=== PATIENT | male | born 1950 | race Caucasian/White ===

== ENCOUNTER 2018-10-13 18:55 | Emergency (ER) | payer OTHER ==
[~2018-10-13] VITALS: Ht 170.2 cm; Wt 90.7 kg
[2018-10-13] MEDS ORDERED: PREVACID30 MG (19:16)
[2018-10-13] MEDS ORDERED: ENALAPRIL MALEA20 MG (19:16)
[2018-10-13] MEDS ORDERED: SINGULAIR 10MG10 MG (19:18)
== END 2018-10-14 02:46 | disposition home or self-care (01) ==
LOC: ER 18:55
DX: I16.0 Hypertensive urgency (principal); I10 Essential (primary) hypertension

== ENCOUNTER 2022-09-14 15:09 | Emergency (ER) | payer OTHER ==
[~2022-09-14] VITALS: Ht 172.7 cm; Wt 72.6 kg
[~2022-09-14 15:09] MED LIST: ENALAPRIL MALEA20 MG; PREVACID30 MG; SINGULAIR 10MG10 MG
== END 2022-09-14 17:37 | disposition home or self-care (01) ==
LOC: ER 15:09
DX: S00.03XA Contusion of scalp, initial encounter (principal); W22.8XXA Striking against or struck by other objects, initial encounter; Y93.89 Activity, other specified; Y92.89 Other specified places as the place of occurrence of the external cause; Y99.8 Other external cause status